=== PATIENT | male | born 1940 | race Caucasian/White ===

== ENCOUNTER 2016-05-26 07:12 | Day surgery (SDC) | payer MEDICARE, OTHER ==
--- NOTE | 2016-05-15 11:31 | HP ---
Chief Complaint - Chief Complaint Date of Service: 05/15/16 Chief Complaint: Bulge in my groin History of Present Illness: This is a 76 yo male with a year long history of an enlarging bulge in the right groin. No problems or bulges on the left. No incident or injury to the groin, no symptoms comsistent with incarceration, but enlarging and bothersome over the past few months. He has not noticed any changes in voiding, he has some chronic constipation and no N or V. Previously had an incarcerated umbilical hernia repaired by me. No anesthesia issues. On coumadin for a stroke last year. - Patient's Past Medical History Patient History - Medical: Arthritis, Diabetes Type 2 - diest controlled Patient History - Cardiac/Respiratory: No pertinent hx, CVA/Stroke, Hypertension , Sleep Apnea Patient History - Cancer: No Hx of Cancer Patient History - Surgical Procedures: Appendectomy - 2011....laparoscopic, Colonoscopy - and , Other - Umbilical hernia 2007 Patient History - Other: None - Family History Family History:: no untoward family reactions to anesthesia, no familial bleeding tendencies, no family history of clotting disorders - Family History Mother Family History - Medical: , History Unknown Father Family History - Medical: Family History - Cardiac/Respiratory: Myocardial Infarction - Social History Living Situations: spouse Abuse History: No History of abuse Psych History: No pertinent hx Does anyone smoke in the home?: No Have you smoked in the past 12 months: No Alcohol Use: occasionally Drug Use: none - Immunizations Immunizations Up to Date: No - not tetanus Hx Pneumococcal Vaccination: No History of Influenza Vaccine: No Review Of Systems (GEN) - Review of Systems Generalized/Overall Review: Absent: Chills, Fever, Weight loss, Weight gain EENTM: Absent: Blurred Vision, Double Vision, Nose Congestion, Throat Swelling Respiratory: Absent: Cough, Shortness of Breath, Wheezing Cardiac: Absent: Chest Pain, Edema, Palpitations, Syncope Abdominal: Present: Constipation. Absent: Nausea, Vomiting, Abdominal Pain, Diarrhea, Bright blood from rectum Genitourinary: Present: Nocturia. Absent: Burning, Itching, Urgency Musculoskeletal: Absent: Joint Pain, Back Pain Neurological: Present: Other - memory loss and word finding difficulties. Absent: Headache, Anxiety, Weakness Skin: Present: Dryness, Change in Color, Bruising Endocrine: Absent: Intolerance to Cold, Intolerance to Heat Allergies/Adverse Reactions: Allergies Allergy/AdvReac Type Severity Reaction Status Date / Time No Known Allergies Allergy Verified 05/07/15 11:04 Home Medications: HOME MEDICATIONS Cinnamon Bark [Cinnamon] 500 mg PO DAILY 09/04/14 [Last Taken Unknown] Glucosam/MSM/Chondroit/Vit D3 [Sv Glucosamine Chondroitin Tab] 1 each PO DAILY 09/04/14 [Last Taken Unknown] Multivitamins [Multivitamin Namrata] 1 cap PO TID 09/04/14 [Last Taken Unknown] [place]-3 Fatty Acids/Fish Oil [Fish Oil 1,200 mg Softgel] 1 each PO DAILY [Last Taken Unknown] traMADol HCL [Ultram] 50 mg PO QID PRN 05/05/15 [Last Taken Unknown] Atorvastatin Calcium [Lipitor] 80 mg PO DAILY 11/01/15 [Last Taken Unknown] Warfarin Sodium [Coumadin] 5 mg PO SUTUTHSA 11/01/15 [Last Taken Unknown] Warfarin Sodium [Jantoven] 7.5 mg PO MOWEFR 11/01/15 [Last Taken Unknown] Exam - Exam Vital Signs: Vital Signs - Last Taken Temp 36.7 C L 05/15/16 Pulse 65 Resp BP 130/65 05/17/15 09:41 Pulse Ox Ht 174cm Wt 87 kg Constitutional: Present: Alert, Oriented x3, Cooperative, Well developed, No distress, Elderly ENT Exam: Present: normal ENT inspection, hearing grossly normal, pharynx normal. Absent: nasal congestion, nasal drainage, muffled/hoarse voice Eye Exam: bilateral eye: normal inspection Neck: Present: non-tender, full range of motion, supple Breasts: Present: Exam deferred Respiratory: Present: chest non-tender, lungs clear, normal breath sounds, no respiratory distress, no accessory muscle use Cardiovascular/Chest: Present: normal peripheral pulses, regular rate, rhythm, no edema, no gallop, no JVD, no murmur Peripheral Pulses: carotid (R): 2+, carotid (L): 2+, femoral (R): 2+, femoral (L ): 2+ Abdomen: Present: Normal bowel sounds, soft, nontender, nondistended, other - incisions well healed, no umbilical hernia. Absent: suprapubic tenderness /Rectal: Present: External genitalia normal, Other - Moderate right inguinal hernia, reducible. No hernia on the left Extremity: Present: normal range of motion, non-tender, normal inspection, no pedal edema, no calf tenderness Skin Exam: Present: warm/dry, other - thin skin with bruising Lymphatic: Present: no adenopathy Neurologic: Present: no motor/sensory deficits, alert, normal mood/affect, oriented x 3, other - some difficulty with finding words Appearance: Present: appropriate appearance, appropriate insight Eye contact: Present: cooperative, good eye contact, normal speech Thoughts: Present: normal thought pattern Assessment/Plan - Narrative Narrative: He is a stable, relatively good health and has an enlarging, symptomatic RIH . He bowls and golfs and is quite active. He would like this repaired. Booklet was reviewed and given to patient and , Discussed the RBIC for hernia repair , including the use of mesh, the risk of infection, recurrence and possibility of bleeding, bruising and blood clots/strokes. Post op recuperation and timing of activities discussed. Will schedule at his convenience and will stop coumadin 4 days in advance. He may need an EKG and we are reaching out to Dr Carrillo and checking on last one. His diabetes is controlled with diet only. He agrees. - Assessment/Plan (1) Right inguinal hernia Problem: Acute (2) Amnesia memory loss Problem: Chronic (3) CVA (cerebral vascular accident) Problem: Chronic
[~2016-05-26 07:12] MED LIST: RINGERS SOLUTION,LACTATED 1,000 ML IV PRN; ceFAZolin SODIUM 2 GM in DEXTROSE 5 % IN WATER 50 ML IV PRN
[2016-05-26] MEDS ORDERED: RINGERS SOLUTION,LACTATED 1,000 ML IV ONE ×2 (07:56→09:30)
[2016-05-26] MEDS ORDERED: ceFAZolin SODIUM 1 GM VIAL IV ONE (08:45)
[2016-05-26] MEDS ORDERED: BUPIVACAINE HCL/EPINEPHRINE 50 ML VIAL IJ ONE (09:00)
[2016-05-26] MEDS ORDERED: MORPHINE SULFATE 4 MG/ML SYRG IV PRN (10:12)
[2016-05-26] MEDS ORDERED: oxyCODONE HCL/ACETAMINOPHEN 1 TAB TABLET PO PRN (10:12)
[2016-05-26] MEDS ORDERED: RINGERS SOLUTION,LACTATED 1,000 ML IV PRN (10:12)
[2016-05-26] MEDS ORDERED: ONDANSETRON HCL/PF 2 MG/ML VIAL IV ONE (10:12)
--- NOTE | 2016-05-26 10:23 | OR ---
Operative Report - Dictated Report Narrative: DATE: 05/26/2016 PREOPERATIVE DIAGNOSIS: RIGHT INGUINAL HERNIA POSTOPERATIVE DIAGNOSIS: RIGHT INGUINAL HERNIA.(Sliding) with lipoma of cord OPERATION PERFORMED: SLIDING RIGHT INGUINAL HERNIA REPAIR WITH MESH SURGEON: Luis Crisostomo M.D. [facility] ANESTHESIA: Jacques Mckeon CRNA GENERAL ANESTHESIA INDICATION: This is a 76-year-old male who presents with a reducible right inguinal hernia. It is bothersome and enlarging. I discussed the risks, benefits, indication, contraindications for an inguinal hernia repair with mesh , and he understood, agreed, and wished to proceed. PROCEDURE: The patient was brought to the operating theater and placed supine position. After adequate general anesthesia, his groin was clipped, prepped and draped in standard fashion. A proper TIMEOUT was performed. 0.5% Marcaine plus epinephrine was used to infiltrate the skin and subcutaneous tissue overlying the hernia. An incision was then made and dissection was carried down through the subcutaneous tissue using cautery. Celina's fascia was opened with cautery and dissection continued bluntly down to the external oblique. The external oblique was bluntly cleaned and then opened sharply. I continued opening the external oblique medially and laterally with the Metzenbaum scissors. The oblique was then cleaned off superiorly and inferiorly exposing the cord. The cord structures were quite generous. The nerve was identified and kept with the cord structures. The cord structures are bluntly dissected away from the pubic tubercle and a Debbie drain was placed around them. The cord structures were then closely examined and a hernia sac was identified. It was dissected away from the cord structures. The hernia sac was quite large and well-developed. The hernia sac was opened and a finger was placed through the floor and there was not noted to be a direct hernia, femoral hernia, but a sliding component was noted. Using 2-0 Vicryl, a stick tie was performed at the base of the hernia sac not incorporating the sliding component, and the hernia sac was amputated. The stump was cauterized, and after noted to be dry, and was allowed to retract through the internal ring. The internal ring was quite generous and the floor was quite weak. The distal sac was dissected away from the cord structures and sent as a specimen. Was a lipoma of the cord, that was dissected away from the cord itself, and placed back through the internal ring. Using 0 Vicryl, the rather lax internal oblique was brought down to the ilioinguinal ligament with interrupted sutures. This reinforced the floor and made a smaller internal ring. This was a modified Bassini type repair. A large piece of Softmesh was then placed onto the floor and secured to the previously placed 0 Vicryl sutures along the ilioinguinal ligament. The tails of the mesh were brought around the cord structures and secured to themselves, and also to the ilioinguinal ligament laterally. Superiorly, the mesh was tacked to the internal oblique with interrupted 0 Vicryls. This gave a nice, solid repair to the floor and a small internal ring. The deep tissues were then infiltrated with the remainder of the Marcaine. The cord was replaced into its normal anatomic position, as was the nerve. The external oblique was then closed with a running 3-0 Vicryl. Celina's was reapproximated with interrupted 3-0 Vicryl. The skin was closed with 4-0 undyed Vicryl in a subcuticular fashion. Steri-Strips and a slight pressure dressing was applied. The testicle was noted to be in its normal anatomic position. The patient was awakened and extubated. No complications were encountered. FINDINGS: Lipoma cord, that was placed back through the internal ring after dissection away from the cord structures, large hernia sac, with a sliding component, lax floor and large internal ring. EBL: Less than 5mls SPECIMEN: one (hernia sac) POSTOPERATIVE CONDITION: THE PATIENT WAS TAKEN TO THE RECOVERY ROOM IN GOOD CONDITION.
[2016-05-26 14:42] VITALS: BP 96/57
== END 2016-05-26 07:13 | disposition home or self-care (01) ==
LOC: AMB 07:12
PROVIDERS: ATTEND Surgery
PROC: 0YU50JZ Supplement Right Inguinal Region with Synthetic Substitute, Open Approach (ICD-10-PCS; principal; 2016-05-26 08:30)
DX: K40.90 Unilateral inguinal hernia, without obstruction or gangrene, not specified as recurrent (principal); I10 Essential (primary) hypertension; E11.9 Type 2 diabetes mellitus without complications; Z68.28 Body mass index [BMI] 28.0-28.9, adult

== ENCOUNTER 2016-12-18 07:58 | Emergency (ER) | payer MEDICARE, OTHER ==
[2016-12-18 08:23] LABS: Urine Bilirubin Negative (NEGATIVE); Urine Blood 25 /ul (NEGATIVE); Urine Ketone Negative (NEGATIVE); Urine Nitrite Negative (NEGATIVE); Urine Protein Negative (NEGATIVE); Urine Specific Gravity 1.025 SP.GR. (1.005-1.030); Urine Urobilinogen Normal (NORMAL)
[2016-12-18 08:33] LABS: Urine Appearance Clear; Urine Bacteria None Seen; Urine Color Yellow; Urine RBC None Seen /hpf (0-5); Urine WBC None Seen /hpf (0-5)
[2016-12-18 08:38] LABS: Hematocrit 43.9 % (42.0-52.0); Hemoglobin 14.8 gm/dL (13.5-18.0); Mean Cell Volume 88.5 fl (78-100); Mean Corpuscular Hemoglobin 29.8 pg (27-31); Mean Corpuscular Hgb Conc 33.7 g/dl (32-36); Mean Platelet Volume 9.1 fl (6.0-9.5); Neutrophil # 6.1 K/mm3 (1.3-6.0); Neutrophil % 78.1 % (42-75.0); Platelet Count 154 K/mm3 (150-450); Red Blood Count 4.96 M/mm3 (4.7-6.0); Red Cell Distribution Width 13.5 % (11.5-14.0); White Blood Count 7.8 K/mm3 (4.0-10.5)
--- NOTE | 2016-12-18 08:44 | ERNOTE ---
Neuro HPI ER Record Date of Service: 12/18/16 Presenting Symptoms: confusion Time Seen by Provider: 12/18/16 08:23 Source: family Exam Limitations: no limitations Immunizations: IMMUNIZATION HX Immunizations Up to Date No History of Influenza Vaccine No Hx Pneumococcal Vaccination No Allergies/Adverse Reactions: Allergies Allergy/AdvReac Type Severity Reaction Status Date / Time No Known Allergies Allergy Verified 12/18/16 08:11 Home Medications: HOME MEDICATIONS Cinnamon Bark [Cinnamon] 500 mg PO DAILY 09/04/14 [Last Taken Unknown] Glucosam/MSM/Chondroit/Vit D3 [Sv Glucosamine Chondroitin Tab] 1 each PO DAILY 09/04/14 [Last Taken Unknown] Multivitamins [Multivitamin Namrata] 1 cap PO TID 09/04/14 [Last Taken Unknown] [place]-3 Fatty Acids/Fish Oil [Fish Oil 1,200 mg Softgel] 1 each PO DAILY [Last Taken Unknown] traMADol HCL [Ultram] 50 mg PO QID PRN 05/05/15 [Last Taken Unknown] Atorvastatin Calcium [Lipitor] 80 mg PO DAILY 11/01/15 [Last Taken Unknown] Warfarin Sodium [Coumadin] 5 mg PO SUTUTHSA 11/01/15 [Last Taken 05/21/16] Warfarin Sodium [Jantoven] 7.5 mg PO MOWEFR 11/01/15 [Last Taken 05/21/16] lamoTRIgine [Lamotrigine] 50 mg PO BID 11/10/16 [Last Taken Unknown] - History of Present Illness Narrative: Patient presents to the ED with family. He has a history of dementia and has seen PCP and neurology for this. His relates that his dementia is progressing and she is out wandering. This am he was out wandering around and EMS was called. Pt cannot provide Hx, he has an exam c/w dementia. relates gradual worsening, no abrupt worsening of his condition. no fevers. He denies pain but his dementia complicates this. No other problems or illnesses noted by family. Onset: other - chronic Severity: moderate - Character of Deficits New weakness: Present: other - none Additional Deficits: Absent: weakness Baseline Cognition: Present: alert but confused Baseline Gait: Present: walks w/o assistance Associated Symptoms: Denies: fever/chills, chest pain, headache, seizure, decreased responsiveness Prior Treament: Denies: recently seen Review of Systems - Narrative Narrative: Unable to obtain d/t dementia - Review of Systems Constitutional: Absent: fever Respiratory: Absent: cough Gastrointestinal/Abdominal: Absent: vomiting - Patient's Past Medical History Patient History - Medical: Arthritis, Diabetes Type 2 Patient History - Cardiac/Respiratory: CVA/Stroke, Hypertension, Sleep Apnea Patient History - Cancer: No Hx of Cancer Patient History - Surgical Procedures: Appendectomy, Colonoscopy, Hernia Repair Patient History - Other: None - Family History Mother Family History - Medical: , History Unknown Family History - Cardiac/Respiratory: History Unknown Family History - Cancer: History Unknown Father Family History - Medical: , No pertinent hx Family History - Cardiac/Respiratory: Myocardial Infarction Family History - Cancer: No pertinent family hx - Social History Living Situations: home Abuse History: No History of abuse Psych History: No pertinent hx Does anyone smoke in the home?: No Smoking Status: Former smoker Alcohol Use: occasionally Drug Use: none - Immunizations Immunizations Up to Date: No Hx Pneumococcal Vaccination: No History of Influenza Vaccine: No Physical Exam - Physical Exam General Appearance: Present: alert, other - clearly confused but alery and in no distress. mental status at this time is c/w a person with dementia Head Exam: Present: normal inspection, no evidence of injury Eye Exam: Normal inspection: bilateral, PERRL: bilateral Ears, Nose, Throat: Present: normal ENT inspection Neck: Present: other - trachea midline Respiratory: Present: no respiratory distress, normal breath sounds, no accessory muscle use, lungs clear Cardiovascular/Chest: Present: regular rate, rhythm, normal peripheral pulses Gastrointestinal/Abdominal: Present: normal bowel sounds, nontender, nondistended, soft Back Exam: Present: normal range of motion Extremity Exam: Present: no edema Neurological Exam: Present: alert, other - confused, no acute unilateral focal motor or sensory deficits Skin Exam: Present: normal color, warm/dry ED Progress - Results and Orders Patient's Lab Results:: I have reviewed the patient's lab results. - Vital Signs Patient's Vital Signs:: I have reviewed the patient's vital signs. Vital Signs: Vital Signs 12/18/16 08:02 Temperature 37.0 C Pulse Rate 86 Respiratory 16 Rate Blood Pressure 178/99 O2 Sat by Pulse 95 Oximetry - Progress/Reassessment Chief Complaint: Altered Mental Status Progress Note-Subjective: 12/18/16 08:[address] Carrillo, he has been Dx with dementia. Neurology had evaluated him. Family feels they cannot care for him at home any longer and are asking about Memory Care units. I will have case management get involved to find memory Care placement for him at Family request. Case Work discussed at length with family. They are going to go home. At this time I find no evidence of acute superimposed medical issue. C/W worsenign dementia. Family chooses to take him home after discussio antolin mattress spring encaser. 12/18/16 10:12 Departure Clinical Impression: Dementia - Departure Disposition: Home self-care Condition: Stable Instructions: Confusion Additional Instructions: Follow-up with Dr Carrillo as soon as possible. Return if your condition worsens of changes in any way. Referrals: Roger Carrillo, [Primary Care Provider] -
[2016-12-18 08:46] LABS: Prothrombin Time (Patient) 24.4 Seconds (9.4-11.4)
[2016-12-18 08:49] LABS: INR 2.35 INR (0.90-1.10)
[2016-12-18 08:52] LABS: Albumin * 3.9 gm/dl (3.4-5.0); Anion Gap 9.6 mmol/L (6.8-13.8); Bilirubin, Total 1.5 mg/dL (0.0-1.1); Ca. Corrected For Albumin 8.5 mg/dL (8.4-10.2); Calcium * 8.7 mg/dL (7.9-10.9); Carbon Dioxide 30.4 mmol/L (24-32.6); Total Protein 7.6 gm/dL (6.2-8.2)
[2016-12-18 11:16] VITALS: BP 154/80
== END 2016-12-18 10:17 | disposition home or self-care (01) ==
LOC: ER 07:58
DX: F03.90 Unspecified dementia, unspecified severity, without behavioral disturbance, psychotic disturbance, mood disturbance, and anxiety (principal)

== ENCOUNTER 2016-12-23 10:04 | Emergency (ER) | payer MEDICARE, OTHER ==
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
[2016-12-23 11:50] VITALS: BP 166/78
== END 2016-12-23 12:04 | disposition home or self-care (01) ==
LOC: ER 10:04
DX: F03.91 Unspecified dementia, unspecified severity, with behavioral disturbance (principal)

== ENCOUNTER 2017-01-02 14:08 | Emergency (ER) | payer MEDICARE, OTHER ==
[2017-01-02] MEDS ORDERED: ZIPRASIDONE MESYLATE 20 MG VIAL IM ONE ×3 (14:44→18:49)
--- NOTE | 2017-01-02 14:56 | ERNOTE ---
Addendum entered and electronically signed by Brice Akbar DO 01/03/17 09:47: Patient has been clear approximate 20 hours and we were able to ameliorate his aggressive behavior with 20 mg of Geodon twice a day and 1 mg of Ativan twice a day. Patient will be sent back to [facility] on a trial basis and if they are not able to manage him there they will arrange for correction placement from their facility. Diagnosis : dementia Patient is discharged in stable condition Original Note: <Brice Akbar - Last Filed: 01/02/17 19:55> Medical Problem HPI - General Chief Complaint: General Assessment Time Seen by Provider: 01/02/17 14:17 Source: family, other - staff members from the [facility] memory care unit - Immun/Allergies/Home Medications Immunizations: IMMUNIZATION HX Immunizations Up to Date No History of Influenza Vaccine No Hx Pneumococcal Vaccination No Allergies/Adverse Reactions: Allergies No Known Allergies Allergy (Verified 01/03/17 07:47) Home Medications: HOME MEDICATIONS Atorvastatin Calcium [Lipitor] 80 mg PO DAILY 11/01/15 [Last Taken Unknown] lamoTRIgine [Lamotrigine] 100 mg PO DAILY 11/10/16 [Last Taken Unknown] Lamotrigine [Lamictal] 200 mg PO HS 12/23/16 [Last Taken Unknown] HYDROcodone/ACETAMINOPHEN [[place] 5-325] 1 tab PO Q6H PRN 01/02/17 [Last Taken Unknown] LORazepam [Ativan] 1 mg PO Q4H 01/02/17 [Last Taken Unknown] LORazepam [Ativan] 1 mg PO BID #60 tablet 01/03/17 [Last Taken Unknown] Lacosamide [Vimpat] 50 mg PO BID 01/03/17 [Last Taken Unknown] Ziprasidone HCl [Geodon] 20 mg PO BID #60 cap 01/03/17 [Last Taken Unknown] - History of Present History Narrative: Staff members from [facility] states that the patient has been having increased agitation not well controlled by the Ativan. The staff members feel that he is perhaps somewhat more confused as well. Timing: getting worse Severity: moderate Review of Systems - Review of Systems Constitutional: Present: See HPI EYE: Present: no symptoms reported ENT: Present: no symptoms reported Respiratory: Present: no symptoms reported Cardiology: Present: no symptoms reported Gastrointestinal/Abdominal: Present: no symptoms reported Genitourinary: Present: no symptoms reported Musculoskeletal: Present: no symptoms reported Skin: Present: no symptoms reported Neurological: Present: anxiety Endocrine: Present: no symptoms reported Hematologic/Lymphatic: Present: no symptoms reported Psych: Present: other - increased agitation - Patient's Past Medical History Patient History - Medical: Arthritis, Diabetes Type 2, Other - advanced dementia Patient History - Cardiac/Respiratory: CVA/Stroke, Hypertension, Sleep Apnea Patient History - Cancer: No Hx of Cancer Patient History - Surgical Procedures: Appendectomy, Colonoscopy, Hernia Repair Patient History - Other: None - Family History Mother Family History - Medical: , History Unknown Family History - Cardiac/Respiratory: History Unknown Family History - Cancer: History Unknown Father Family History - Medical: , No pertinent hx Family History - Cardiac/Respiratory: Myocardial Infarction Family History - Cancer: No pertinent family hx - Social History Living Situations: home Abuse History: No History of abuse Psych History: No pertinent hx - Immunizations Immunizations Up to Date: No Hx Pneumococcal Vaccination: No History of Influenza Vaccine: No Physical Exam - Physical Exam General Appearance: Present: wd/wn, moderate distress, anxious Head Exam: Present: normal inspection Eye Exam: Normal inspection: bilateral, PERRL: bilateral Ears, Nose, Throat: Present: normal ENT inspection, H, normal pharynx Neck: Present: normal inspection, nontender Respiratory: Present: no respiratory distress, normal breath sounds, no accessory muscle use, chest nontender, lungs clear Cardiovascular/Chest: Present: regular rate, rhythm, no murmur, normal peripheral pulses Gastrointestinal/Abdominal: Present: normal bowel sounds, nontender, nondistended, soft, no organomegaly Rectal Exam: Present: deferred Back Exam: Present: normal inspection, normal range of motion Extremity Exam: Present: normal inspection, non-tender, no edema, normal range of motion Neurological Exam: Present: disoriented to person, disoriented to time, disoriented to place, disoriented to situation Skin Exam: Present: normal color, warm/dry Lymphatic Exam: Present: no adenopathy ED Progress - Results and Orders Patient's Lab Results:: I have reviewed the patient's lab results. Results and Orders: I also reviewed the results of his recent lumbar puncture that was done this morning in an outpatient setting. - Vital Signs Patient's Vital Signs:: I have reviewed the patient's vital signs. Vital Signs: Vital Signs 01/02/17 14:12 Temperature 36.9 C Pulse Rate 63 Respiratory 12 Rate Blood Pressure 162/86 O2 Sat by Pulse 93 Oximetry - Progress/Reassessment Chief Complaint: General Assessment - Transfer of Care Physician Sign Out: Brice Akbar Receiving Physician: Felice Castro Expected Disposition: Transfer Plan - Plan Plan: While the patient certainly has dementia, he appears to be deteriorating to a certain degree. It also appears he'll not be able to be managed in the assisted living memory care unit rather. I believe the patient would benefit from inpatient geriatric site unit for reassessment of his medication regimen and adjustments as deemed necessary. Departure Clinical Impression: Dementia Qualifiers: Dementia type: Alzheimer's disease Alzheimer's disease onset: late-onset Dementia behavioral disturbance: with behavioral disturbance Qualified Code(s): G30.1 - Alzheimer's disease with late onset - Departure Disposition: Other health care facility Condition: Fair Instructions: Dementia, [id number] Referrals: Roger Carrillo DO [Primary Care Provider] - Prescriptions: LORazepam [Ativan] 1 mg PO BID #60 tablet Ziprasidone HCl [Geodon] 20 mg PO BID #60 cap <Felice Castro - Last Filed: 01/04/17 06:01> Medical Problem HPI - Immun/Allergies/Home Medications Immunizations: IMMUNIZATION HX Immunizations Up to Date No History of Influenza Vaccine No Hx Pneumococcal Vaccination No ED Progress - Results and Orders Patient's Lab Results:: I have reviewed the patient's lab results. - Vital Signs Patient's Vital Signs:: I have reviewed the patient's vital signs. Vital Signs: Vital Signs 01/02/17 01/02/17 01/02/17 19:50 20:06 21:14 Pulse Rate 103 H 104 H 101 H Respiratory 11 L 16 15 Rate Blood Pressure 153/76 O2 Sat by Pulse 99 100 98 Oximetry 01/02/17 01/03/17 01/03/17 23:02 01:24 02:46 Pulse Rate 78 78 Respiratory 16 Rate Blood Pressure 148/64 143/66 168/91 O2 Sat by Pulse Oximetry - Progress/Reassessment Progress Note-Subjective: 01/03/17 03:31 Pt restless and was up in his room trying to get into the dirty clothes bin. Pt placed in a recliner and put close to the nurses station. Pt appears comfortable in the recliner. 01/03/17 04:50 Pt restless and walking around in the ED. Nursing attempting to keep up with him. Pt tossed the walker aside and walked without it. 01/03/17 07:50 Pt continued to be restless and began to be aggressive again when staff tried to distract him and keep him in the ED. Pt was given 20mg Geodon and then 2 hours later 1 mg IM ativan. Pt began to less restless after the ativan. Unable to place the patient in an inpatient facility. Pt to be passed back to Dr. Akbar for consult with the patients PCP or psychiatry.
[2017-01-02 15:00] LABS: Urine Bilirubin Negative (NEGATIVE); Urine Blood Negative /ul (NEGATIVE); Urine Ketone 5 mg/dL (NEGATIVE); Urine Nitrite Negative (NEGATIVE); Urine Protein Negative (NEGATIVE); Urine Specific Gravity 1.025 SP.GR. (1.005-1.030); Urine Urobilinogen Normal (NORMAL)
[2017-01-02 15:02] LABS: Urine Appearance Clear; Urine Bacteria None Seen; Urine Color Yellow; Urine RBC None Seen /hpf (0-5); Urine WBC None Seen /hpf (0-5)
[2017-01-02 15:09] LABS: Mean Corpuscular Hgb Conc 34.1 g/dl (32-36); Neutrophil # 5.9 K/mm3 (1.3-6.0); Neutrophil % 71.6 % (42-75.0); Platelet Count 179 K/mm3 (150-450); Red Blood Count 4.66 M/mm3 (4.7-6.0); Red Cell Distribution Width 13.4 % (11.5-14.0); White Blood Count 8.2 K/mm3 (4.0-10.5)
[2017-01-02 15:23] LABS: Albumin * 3.8 gm/dl (3.4-5.0); BUN/Creatinine Ratio 19.8 (9.0-21.6); Bilirubin, Total 2.3 mg/dL (0.0-1.1); Ca. Corrected For Albumin 8.9 mg/dL (8.4-10.2); Calcium * 9.1 mg/dL (7.9-10.9); Carbon Dioxide 31.7 mmol/L (24-32.6); Potassium 3.7 mmol/L (3.4-4.6); Total Protein 7.7 gm/dL (6.2-8.2)
[2017-01-02 15:36] LABS: Cocaine Ur Negative (NEGATIVE); Urine Barbiturate Negative (NEGATIVE); Urine Benzodiazepines Negative (NEGATIVE); Urine PCP Negative (NEGATIVE); Urine THC Negative (NEGATIVE)
[2017-01-02 15:37] LABS: TSH * 1.359 uIU/mL (0.358-3.74)
[2017-01-02 15:39] LABS: Salicylate Less than 2.8 mg/dL (2.8-20.0)
[2017-01-02 15:40] LABS: Urine Opiates Positive (NEGATIVE)
[2017-01-02] MEDS ORDERED: ZIPRASIDONE MESYLATE 20 MG VIAL IM SCH (19:15)
[2017-01-03] MEDS ORDERED: ZIPRASIDONE HCL 20 MG CAPSULE ONE (04:49)
[2017-01-03] MEDS ORDERED: ZIPRASIDONE HCL 20 MG CAPSULE PO ONE (04:50)
[2017-01-03] MEDS ORDERED: LORazepam 2 MG/ML DISP.SYRIN IM ONE (05:56)
[2017-01-03 12:29] VITALS: BP 152/81
[2017-01-03] MEDS ORDERED: ZIPRASIDONE MESYLATE 20 MG VIAL IM ONE ×2 (14:25→14:30)
== END 2017-01-03 15:42 | disposition short-term general hospital (02) ==
LOC: ER 14:08
DX: G30.1 Alzheimer's disease with late onset (principal)
CPT/HCPCS: 36415; 80053; 80307; 81001; 82140; 84443; 85025; 93005; 96372; 99285; G0480; G0481

== ENCOUNTER 2017-01-05 13:33 | Inpatient (IN) | payer OTHER, MEDICARE ==
--- NOTE | 2017-01-05 14:04 | ERNOTE ---
Neuro HPI ER Record Presenting Symptoms: confusion Time Seen by Provider: 01/05/17 13:45 Source: family Exam Limitations: clinical condition Immunizations: IMMUNIZATION HX Immunizations Up to Date Yes History of Influenza Vaccine Yes Hx Pneumococcal Vaccination Yes Allergies/Adverse Reactions: Allergies Allergy/AdvReac Type Severity Reaction Status Date / Time No Known Allergies Allergy Verified 01/05/17 13:55 Home Medications: HOME MEDICATIONS Atorvastatin Calcium [Lipitor] 80 mg PO DAILY 11/01/15 [Last Taken Unknown] lamoTRIgine [Lamotrigine] 100 mg PO DAILY 11/10/16 [Last Taken Unknown] Lamotrigine [Lamictal] 200 mg PO HS 12/23/16 [Last Taken Unknown] HYDROcodone/ACETAMINOPHEN [[place] 5-325] 1 tab PO Q6H PRN 01/02/17 [Last Taken Unknown] LORazepam [Ativan] 1 mg PO Q4H 01/02/17 [Last Taken Unknown] Lacosamide [Vimpat] 50 mg PO BID 01/03/17 [Last Taken Unknown] Ziprasidone HCl [Geodon] 20 mg PO BID #60 cap 01/03/17 [Last Taken Unknown] Ziprasidone HCl [Geodon] 20 mg PO BID 01/05/17 [Last Taken Unknown] - History of Present Illness Narrative: Patient is here for a rapid mental decline over the last month. He has a remote history of a possible stroke, no history of dementia, was doing well, living independently at home with his till about a month ago. he has had a rapid mental and physical decline since, initially difficulty finding words, no focal findings though. His first ER visit was on 12/18 and again on 12/23. At that time he was admitted to the memory unit at [facility]. He was seen in ER again on 01/02 for aggressive behavior and further mental and physical decline. At that point had a shuffling gait. His behavior was controlled with geodon and ativan and he was send back to [facility]. He has followed up with the neurologist, had a recent lumbar puncture at their office, last MRI was at [facility] in the summer (September or October per ) The last few days he has had almost no oral intake, has either been agitated and aggressive or sedated and minimally responsive, multiple falls. Last geodon and ativan at 07:00 History is obtained from the as he is unable to give any Review of Systems - Narrative Narrative: unable to obtain details - Patient's Past Medical History Patient History - Medical: Arthritis, Diabetes Type 2, Other Patient History - Cardiac/Respiratory: CVA/Stroke, Hypertension, Sleep Apnea Patient History - Cancer: No Hx of Cancer Patient History - Surgical Procedures: Appendectomy, Colonoscopy, Hernia Repair Patient History - Other: None - Family History Mother Family History - Medical: , History Unknown Family History - Cardiac/Respiratory: History Unknown Family History - Cancer: History Unknown Father Family History - Medical: , No pertinent hx Family History - Cardiac/Respiratory: Myocardial Infarction Family History - Cancer: No pertinent family hx - Social History Living Situations: home Abuse History: No History of abuse Psych History: No pertinent hx Smoking Status: Never smoker Alcohol Use: none Drug Use: none - Immunizations Immunizations Up to Date: Yes Hx Pneumococcal Vaccination: Yes History of Influenza Vaccine: Yes Physical Exam - Physical Exam General Appearance: Present: wd/wn, no apparent distress, lethargic Head Exam: Present: normal inspection, no evidence of injury Eye Exam: Other: bilateral - fights to have eye lids opened Ears, Nose, Throat: Present: normal ENT inspection Respiratory: Present: no respiratory distress, normal breath sounds, lungs clear Cardiovascular/Chest: Present: regular rate, rhythm, no murmur Gastrointestinal/Abdominal: Present: nondistended, soft Neurological Exam: Present: other - lethargic, does not follow commands, spits across the room intermittently, refuses to open eyes and resists to have lids moved, seems to move all extremities Skin Exam: Present: normal color, warm/dry ED Progress - Results and Orders Patient's Lab Results:: I have reviewed the patient's lab results. - Vital Signs Patient's Vital Signs:: I have reviewed the patient's vital signs. 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 , limbic encephalitis), had lumbar puncture, had MRI few months ago at [facility], had multiple EEGs, extensive lab testing was seen at the [facility] and evaluated for seizures but not seen by dementia specialist which is what Dr Gilbert had suggested started on Vimpad this week Patient has poor prognosis and is unlikely to live more than 1-2 months, might benefit from seeing dementia specialist at the [facility], not a psychiatric issue, psychiatry consultation unlikely to help care concern about haldol making things worse,consider starting trazodone 10mg start at qhs, increase to bid 01/05/17 16:00 extensive discussion with and family about discussion with neurologist, progressive dementia of unclear origin with poor prognosis, discussed hospice with family, if further testing is unlikely to give curative treatment options they are not interested in transfer, open to hospice consult 01/05/17 16:15 discussed with clinical case manager (Nichole) consult [facility] hospice 01/05/17 16:21 discussed with [facility] to consult for acute hospital admission for hospice 01/05/17 16:50 patient was getting more agitated and restless, trying to climb out of bed, after receiving ativan patient resting 01/05/17 17:06 discussed with Roma from [facility], will admit patient for hospice acute symptoms management 01/05/17 17:07 discussed with judith Herrera to admit Departure Clinical Impression: Rapidly progressive dementia, Behavior problems - Departure Disposition: [facility] Condition: Fair
[2017-01-05 14:23] LABS: Hematocrit 41.3 % (42.0-52.0); Hemoglobin 13.9 gm/dL (13.5-18.0); Mean Cell Volume 88.8 fl (78-100); Mean Corpuscular Hemoglobin 29.9 pg (27-31); Mean Corpuscular Hgb Conc 33.7 g/dl (32-36); Mean Platelet Volume 9.2 fl (6.0-9.5); Neutrophil # 6.2 K/mm3 (1.3-6.0); Neutrophil % 75.6 % (42-75.0); Platelet Count 193 K/mm3 (150-450); Red Blood Count 4.65 M/mm3 (4.7-6.0); Red Cell Distribution Width 13.7 % (11.5-14.0); White Blood Count 8.3 K/mm3 (4.0-10.5)
[2017-01-05 14:44] LABS: Albumin * 3.6 gm/dl (3.4-5.0); Anion Gap 11.4 mmol/L (6.8-13.8); BUN/Creatinine Ratio 21.2 (9.0-21.6); Bilirubin, Total 2.5 mg/dL (0.0-1.1); CRP 1.6 mg/dL (0.0-0.9); Ca. Corrected For Albumin 9.5 mg/dL (8.4-10.2); Calcium * 9.5 mg/dL (7.9-10.9); Carbon Dioxide 31.6 mmol/L (24-32.6); Total Protein 7.6 gm/dL (6.2-8.2)
[2017-01-05] MEDS ORDERED: LORazepam 2 MG/ML DISP.SYRIN IM ONE (16:16)
[2017-01-05] MEDS ORDERED: LORazepam 2 MG/ML DISP.SYRIN ONE (16:18)
[2017-01-05 17:22] VITALS: BP 120/72
[2017-01-05] MEDS: ZIPRASIDONE HCL 20 MG CAPSULE PO SCH (22:13)
[2017-01-05] MEDS: LORazepam 2 MG/ML DISP.SYRIN IM PRN (23:03)
--- NOTE | 2017-01-05 23:27 | HP ---
Chief Complaint - Chief Complaint Date of Service: 01/05/17 Time of Service: 21:00 Chief Complaint: Rapidly progressive dementia History of Present Illness: 76 years old WM adm to the hospital with hospice care. pt is somnolent, not responsive to verbal or tacticle stimuli. Unable to obtain information due to medical state. Previous records reviewed and information obtained from current ER visit.PMH significant for CVA, HTN, sleep apnea and DM II. For the last month pt have been having rapid mental and physical decline. Family agree to hospice in ER and pt is been followed by [facility]. - Patient's Past Medical History Patient History - Medical: Arthritis, Diabetes Type 2, Other Patient History - Cardiac/Respiratory: CVA/Stroke, Hypertension, Sleep Apnea Patient History - Cancer: No Hx of Cancer Patient History - Surgical Procedures: Appendectomy, Colonoscopy, Hernia Repair Patient History - Other: None - Family History Mother Family History - Medical: , History Unknown Family History - Cardiac/Respiratory: History Unknown Family History - Cancer: History Unknown Father Family History - Medical: , No pertinent hx Family History - Cardiac/Respiratory: Myocardial Infarction Family History - Cancer: No pertinent family hx - Social History Living Situations: other - [facility] Abuse History: No History of abuse Psych History: No pertinent hx Smoking Status: Never smoker Have you smoked in the past 12 months: No Alcohol Use: none Drug Use: none - Immunizations Immunizations Up to Date: Yes Hx Pneumococcal Vaccination: Yes History of Influenza Vaccine: Yes Review Of Systems (GEN) - Review of Systems Generalized/Overall Review: Present: No Symptoms Reported - Rapidly progressing dementia unable to get information from pt. Respiratory: Present: No Symptoms Reported Abdominal: Present: No Symptoms Reported Genitourinary: Present: No Symptoms Reported Musculoskeletal: Present: No Symptoms Reported Neurological: Present: No Symptoms Reported Skin: Present: No Symptoms Reported Immunizations: IMMUNIZATION HX Immunizations Up to Date Yes History of Influenza Vaccine Yes Hx Pneumococcal Vaccination Yes Allergies/Adverse Reactions: Allergies Allergy/AdvReac Type Severity Reaction Status Date / Time No Known Allergies Allergy Verified 01/05/17 13:55 Home Medications: HOME MEDICATIONS HYDROcodone/ACETAMINOPHEN [[place] 5-325] 1 tab PO Q6H PRN 01/02/17 [Last Taken Unknown] LORazepam [Ativan] 1 mg PO Q4H 01/02/17 [Last Taken Unknown] Lacosamide [Vimpat] 50 mg PO BID 01/03/17 [Last Taken Unknown] Ziprasidone HCl [Geodon] 20 mg PO BID #60 cap 01/03/17 [Last Taken Unknown] Exam - Exam Vital Signs: Vital Signs - Last Taken Temp 36.6 C 01/05/17 17:18 Pulse 73 01/05/17 17:18 Resp 14 01/05/17 17:18 BP 120/72 01/05/17 17:18 Pulse Ox 95 01/05/17 17:18 Constitutional: Present: Somnolent ENT Exam: Present: moist mucous membranes Neck: Present: full range of motion Respiratory: Present: chest non-tender, no respiratory distress, decreased breath sounds Cardiovascular/Chest: Present: normal peripheral pulses, no chest tenderness, no edema Peripheral Pulses: dorsalis-pedis (R): 2+, dorsalis-pedis (L): 2+ Abdomen: Present: Normal bowel sounds, soft, nontender Extremity: Present: slow capillary refill Skin Exam: Present: other - Multiple areas of bruising Neurologic: Present: aphasia, sensory deficit, depressed affect Appearance: Present: impaired remote memory Thoughts: Present: no apparent hallucination Diagnostic Studies: Laboratory Results WBC 8.3 K/mm3 (4.0-10.5) 01/05/17 14:20 RBC 4.65 M/mm3 (4.7-6.0) L 01/05/17 14:20 Hgb 13.9 gm/dL (13.5-18.0) 01/05/17 14:20 Hct 41.3 % (42.0-52.0) L 01/05/17 14:20 MCV 88.8 fl (78-100) 01/05/17 14:20 MCH 29.9 pg (27-31) 01/05/17 14:20 MCHC 33.7 g/dl (32-36) 01/05/17 14:20 RDW 13.7 % (11.5-14.0) 01/05/17 14:20 Plt Count 193 K/mm3 (150-450) 01/05/17 14:20 MPV 9.2 fl (6.0-9.5) 01/05/17 14:20 Immature Gran % (Auto) 0.40 % (0.001-0.429) 01/05/17 14:20 Immature Gran # (Auto) 0.03 K/mm3 (0.000-0.0310) 01/05/17 14:20 Neutrophils % 75.6 % (42-75.0) H 01/05/17 14:20 Lymphocytes % 14.4 % (20-51) L 01/05/17 14:20 Monocytes % 6.9 % (0.0-9) 01/05/17 14:20 Eosinophils % 2.3 % (0.0-3.0) 01/05/17 14:20 Basophils % 0.4 % (0.0-1.0) 01/05/17 14:20 Nucleated RBC % 0.0 k/mm3 (0-1) 01/05/17 14:20 Neutrophils # 6.2 K/mm3 (1.3-6.0) H 01/05/17 14:20 Lymphocytes # 1.2 k/mm3 (1.5-3.5) L 01/05/17 14:20 Monocytes # 0.6 k/mm3 (0.0-1.0) 01/05/17 14:20 Eosinophils # 0.2 k/mm3 (0.0-0.7) 01/05/17 14:20 Absolute Basophils 0.0 k/mm3 (0.0-0.1) 01/05/17 14:20 Sodium 146 mmol/L (132-142) H 01/05/17 14:20 Plasma Sodium 147 mmol/L (130-142) H 01/05/17 14:20 Potassium 4.0 mmol/L (3.4-4.6) 01/05/17 14:20 Chloride 107 mmol/L (97-106) H 01/05/17 14:20 Carbon Dioxide 31.6 mmol/L (24-32.6) 01/05/17 14:20 Anion Gap 11.4 mmol/L (6.8-13.8) 01/05/17 14:20 BUN 31 mg/dL (6-23) H 01/05/17 14:20 Creatinine 1.46 mg/dL (0.4-1.4) H 01/05/17 14:20 Est GFR (Non-Af Amer) 50 mL/min (60-130) L D 01/05/17 14:20 BUN/Creatinine Ratio 21.2 (9.0-21.6) 01/05/17 14:20 Random Glucose 154 mg/dL (70-110) H 01/05/17 14:20 Calcium 9.5 mg/dL (7.9-10.9) 01/05/17 14:20 Calcium Adj for Albumin 9.5 mg/dL (8.4-10.2) 01/05/17 14:20 Total Bilirubin 2.5 mg/dL (0.0-1.1) H 01/05/17 14:20 AST 38 U/L (0-48) 01/05/17 14:20 ALT 48 U/L (19-67) 01/05/17 14:20 Alkaline Phosphatase 98 U/L (50-170) 01/05/17 14:20 C-Reactive Prot, Quant 1.6 mg/dL (0.0-0.9) H 01/05/17 14:20 Total Protein 7.6 gm/dL (6.2-8.2) 01/05/17 14:20 Albumin 3.6 gm/dl (3.4-5.0) 01/05/17 14:20 CT head: No acute intra-cranial abnormality Assessment/Plan - Assessment/Plan (1) Hypertension Problem: Chronic (2) Sleep apnea Problem: Chronic (3) Rapidly progressive dementia Problem: Acute (4) Dementia Problem: Chronic (5) Right inguinal hernia Problem: Chronic (6) Amnesia memory loss Problem: Chronic (7) CVA (cerebral vascular accident) Problem: Chronic
[2017-01-06] MEDS: ZIPRASIDONE HCL 20 MG CAPSULE PO SCH ×2 (10:07→20:22)
[2017-01-06] MEDS: LORazepam 2 MG/ML DISP.SYRIN IM PRN (11:02)
[2017-01-06] MEDS ORDERED: MORPHINE SULFATE 10 MG/0.5 ML SYRINGE PO ONE (11:21)
[2017-01-06] MEDS: LORazepam 1 MG TABLET PO SCH ×2 (11:57→18:42)
[2017-01-06] MEDS: MORPHINE SULFATE 10 MG/0.5 ML SYRINGE PO PRN ×2 (15:27→20:20)
[2017-01-07] MEDS: LORazepam 1 MG TABLET PO SCH ×5 (05:50→23:31)
[2017-01-07] MEDS: MORPHINE SULFATE 10 MG/0.5 ML SYRINGE PO PRN ×2 (11:44→17:56)
[2017-01-07] MEDS: ZIPRASIDONE HCL 20 MG CAPSULE PO SCH ×2 (11:47→20:26)
[2017-01-08] MEDS: LORazepam 2 MG/ML DISP.SYRIN IM PRN ×2 (00:37→15:35)
[2017-01-08] MEDS: MORPHINE SULFATE 10 MG/0.5 ML SYRINGE PO PRN ×3 (01:03→15:35)
[2017-01-08] MEDS: LORazepam 1 MG TABLET PO SCH ×3 (05:37→17:59)
[2017-01-08] MEDS: ZIPRASIDONE HCL 20 MG CAPSULE PO SCH (08:57)
--- NOTE | 2017-01-08 17:00 | PN ---
Subjective - Date and Time Seen Date: 01/08/17 Time: 12:30 Subjective Narrative: Patient resting. Has been calm today with occasional restlessness. No focal concerns. Objective - Vitals Vitals: Last Vital Signs Temp 36.6 C 01/06/17 09:00 Pulse 73 01/06/17 09:00 Resp 14 01/06/17 09:00 BP 120/72 01/06/17 09:00 Pulse Ox 95 01/06/17 09:00 - Exam Constitutional: Present: Somnolent Respiratory: Present: lungs clear, normal breath sounds Cardiovascular/Chest: Present: regular rate, rhythm, no murmur Abdomen: Present: Normal bowel sounds, soft, nondistended Skin Exam: Present: normal color, warm/dry, no cyanosis Assessment/Plan - Problems/Diagnosis (1) Rapidly progressive dementia Problem: Acute Narrative: Patient with rapidly progressive dementia, suspect vascular. Life expectancy <6 months. Accepted by hospice. Patient is currently resting well with medications. No adjustments recommended per hospice. Patient is comfortable.
[2017-01-09] MEDS: ZIPRASIDONE HCL 20 MG CAPSULE PO SCH ×2 (00:21→08:36)
[2017-01-09] MEDS: LORazepam 1 MG TABLET PO SCH ×4 (00:23→12:35)
[2017-01-09] MEDS ORDERED: diphenhydrAMINE HCL 25 MG CAPSULE PO PRN (00:35)
[2017-01-09] MEDS: LORazepam 2 MG/ML DISP.SYRIN IM PRN (00:44)
[2017-01-09] MEDS: MORPHINE SULFATE 10 MG/0.5 ML SYRINGE PO PRN ×3 (03:56→13:53)
[2017-01-09] MEDS ORDERED: MORPHINE SULFATE 10 MG/0.5 ML SYRINGE PO PRN (08:50)
--- NOTE | 2017-01-09 12:17 | DS ---
(1) Rapidly progressive dementia Problem: Acute Procedures Performed: none Discharge Disposition: [facility] Disposition: [facility] Condition: Poor Discharge Activity: Activity as tolerated Discharge Diet: General/regular food Discharge Level of Care:: Hospice - Alf Problem Oriented Discharge Instructions to Patient/Family: Dementia Prescriptions (Any new or edited meds): diphenhydrAMINE HCL [Benadryl] 25 mg PO Q6H PRN #120 capsule PRN Reason: Itching/restlessness LORazepam [Ativan] 1 mg PO Q4H #120 tablet Morphine Sulfate [Morphine Sulfate Conc. Oral Solution] 10 mg PO Q1H PRN #120 syringe PRN Reason: Severe Pain Morphine Sulfate [Morphine Sulfate Conc. Oral Solution] 5 mg PO Q1H PRN #120 syringe PRN Reason: Moderate Pain Ziprasidone HCl [Geodon] 20 mg PO BID #60 capsule Complete Home Medications List: Complete Home Medication List: LORazepam [Ativan] 1 mg PO Q4H 01/02/17 Ziprasidone HCl [Geodon] 20 mg PO BID #60 cap 01/03/17 LORazepam [Ativan] 1 mg PO Q4H #120 tablet 01/09/17 Morphine Sulfate [Morphine Sulfate Conc. Oral Solution] 5 mg PO Q1H PRN #120 syringe 01/09/17 Morphine Sulfate [Morphine Sulfate Conc. Oral Solution] 10 mg PO Q1H PRN #120 syringe 01/09/17 Ziprasidone HCl [Geodon] 20 mg PO BID #60 capsule 01/09/17 diphenhydrAMINE HCL [Benadryl] 25 mg PO Q6H PRN #120 capsule 01/09/17
== END 2017-01-09 14:30 | disposition hospice, home (50) | DRG 884 ==
LOC: ER 13:33 → UNDOADMIN 17:19 → MS 17:19
PROVIDERS: ADMIT Internal Medicine; ATTEND Family Medicine
DX: F03.90 Unspecified dementia, unspecified severity, without behavioral disturbance, psychotic disturbance, mood disturbance, and anxiety (principal); R40.1 Stupor; Z51.5 Encounter for palliative care; F06.8 Other specified mental disorders due to known physiological condition; I10 Essential (primary) hypertension; E11.9 Type 2 diabetes mellitus without complications; G47.30 Sleep apnea, unspecified; Z86.73 Personal history of transient ischemic attack (TIA), and cerebral infarction without residual deficits